=== PATIENT | female | born 1990 ===

== ENCOUNTER 2016-11-15 09:44 | Emergency (ER) | payer OTHER ==
[2016-11-15 09:50] VITALS: RESP 18; O2SAT 99
--- NOTE | 2016-11-15 10:25 | ED PDOC ---
HPI: Abdomen Time Seen by Provider: 11/15/16 10:08 Chief Complaint (Nursing): Abdominal Pain Chief Complaint (Provider): Abdominal Pain and Vomiting History Per: Patient History/Exam Limitations: no limitations Onset/Duration Of Symptoms: Days (1) Outside of [place] travel?: No Current Symptoms Are (Timing): Still Present Severity: Severe Pain Scale Rating Of: 10 Location Of Pain/Discomfort: Epigastric Quality Of Discomfort: Sharp Associated Symptoms: Nausea (since yesterday), Vomiting (early this AM, watery x2), Loss Of Appetite. denies: Fever, Chills, Diarrhea, Urinary Symptoms Exacerbating Factors: Food Last Bowel Movement: Yesterday Additional Complaint(s): 26 yo F w PMHx of treated ?stomach infection presents to ER for abdominal pain and vomiting x2 since this morning. Patient woke up w abdominal pain that she described as 10/10, sharp quality, and located in epigastric region. She vomited water shortly after waking up. Her last meal was yesterday morning as she became nauseous following breakfast. No regular medications, but she did try taking Nexium and Tylenol to help with her pain. She states having a stomach infection of unknown type 1.5 years ago that had been treated to it's resolution before emigrating to the [place]. LMP was 10/22, last sexual encounter was 2 days prior to this visit, and she does use protection. She denies any fevers/ chills, diarrhea, constipation, chest pain, palpitations, SOB, dyspnea, cough, hematuria, dysuria, vaginal discharge, or myalgias. Abnormal Vaginal Bleeding: No Last Menstral Period: 10/22 : 1 Para: 1 Past Medical History Reviewed: Historical Data, Nursing Documentation, Vital Signs Vital Signs: Last Vital Signs Temp 99.3 F 11/15/16 09:49 Pulse 76 11/15/16 09:49 Resp 18 11/15/16 09:49 BP 118/70 11/15/16 09:49 Pulse Ox 99 11/15/16 12:35 - Family History Family History: States: No Known Family Hx - Home Medications Home Medications: Ambulatory Orders Medication Instructions Recorded Famotidine [Pepcid] 20 mg PO BID PRN #10 tab 11/15/16 - Allergies Allergies/Adverse Reactions: Allergies Allergy/AdvReac Type Severity Reaction Status Date / Time No Known Allergies Allergy Verified 11/15/16 10:16 Review of Systems ROS Statement: Except As Marked, All Systems Reviewed And Found Negative (see HPI) Physical Exam - Reviewed Nursing Documentation Reviewed: Yes Vital Signs Reviewed: Yes - Physical Exam Appears: Positive for: Non-toxic, No Acute Distress Head Exam: Positive for: ATRAUMATIC, NORMAL INSPECTION, NORMOCEPHALIC Skin: Positive for: Normal Color, Warm, Dry Eye Exam: Positive for: Normal appearance, EOMI, PERRL Neck: Positive for: Normal, Painless ROM Cardiovascular/Chest: Positive for: Regular Rate, Rhythm. Negative for: Edema Respiratory: Positive for: Normal Breath Sounds. Negative for: Rhonchi, Wheezing Gastrointestinal/Abdominal: Positive for: Soft (lower quadrants only), Tenderness (TTP: LUQ, RUQ, Epigastric ), Guarding (voluntary LUQ, RUQ, Epigastric). Negative for: Distended Extremity: Positive for: Normal ROM. Negative for: Pedal Edema, Calf Tenderness Neurologic/Psych: Positive for: Alert, medical record librarian II-XII, Oriented - Laboratory Results Result Diagrams: 11/15/16 10:39 11/15/16 10:39 - ECG O2 Sat by Pulse Oximetry: 99 - Progress ED Course And Treament: 26 yo F w PMHx of treated ?stomach infection presents to ER for abdominal pain and vomiting x2 since this morning -CBC -CMP -Lipase -U/S: Abd GB Zofran and Pepcid added when Upreg resulted negative Update 1200: -Pain significantly improved -U/S resulted negative -Physical exam illicited much less tenderness Update 1300: -Pain and presentation continues to improve -To be discharged home w Pepcid and clinic instructions -ED precautions given Disposition - Clinical Impression Clinical Impression: Gastritis - Patient ED Disposition Is Patient to be Admitted: No - Disposition Referrals: [facility] [Outside] [facility] [Outside] Disposition: Routine/Home Disposition Time: 13:15 Condition: STABLE Additional Instructions: follow up with your primary doctor in 1-2 days - clinic referral return to the ED with any worsening or concerning symptoms. Prescriptions: Famotidine [Pepcid] 20 mg PO BID PRN #10 tab PRN Reason: Heartburn Instructions: Gastritis (ED) Print Language: EGYPTIAN
[2016-11-15 10:45] LABS: BASO % 0.4 % (0.0-2.0); EOS % 0.2 % (0.0-4.0); HEMATOCRIT 43.1 % (34.0-47.0); LYMPH # 1.7 K/uL (1.0-4.3); LYMPH % 16.2 % (20.0-40.0); MEAN CORPUSCULAR HEMOGLOBIN 28.5 pg (27.0-31.0); MEAN CORPUSCULAR HGB CONC 33.1 g/dL (33.0-37.0); MEAN PLATELET VOLUME 8.4 fl (7.2-11.7); MONO # 0.6 K/uL (0.0-0.8); MONO % 6.1 % (0.0-10.0); NEUT # 7.9 K/uL (1.8-7.0); NEUT % 77.1 % (50.0-75.0); NRBC % 0.1 % (0.0-0.0); RED CELL DISTRIBUTION WIDTH 13.1 % (11.5-14.5); WHITE BLOOD COUNT 10.2 K/uL (4.8-10.8)
[2016-11-15 10:56] LABS: ALB/GLOB RATIO 1.2 (1.0-2.1); ALKALINE PHOSPHATASE 39 U/L (38-126); ALT/SGPT 27 U/L (9-52); AST/SGOT 37 U/L (14-36); BILIRUBIN,TOTAL 0.9 mg/dl (0.2-1.3); BLOOD UREA NITROGEN 10 mg/dl (7-17); CALCIUM 9.2 mg/dL (8.4-10.2); CARBON DIOXIDE 21 mmol/L (22-30); CHLORIDE 107 mmol/L (98-107); GFR AFRICAN-AMERICAN > 60; GLUCOSE,RANDOM 81 mg/dL (65-105); LIPASE 135 U/L (23-300); SODIUM 139 mmol/l (132-148); TOTAL PROTEIN 8.2 G/DL (6.3-8.2)
[2016-11-15 10:57] LABS: POTASSIUM 5.3 MMOL/L (3.6-5.0)
--- NOTE | 2016-11-15 11:23 | US ---
HISTORY: intense abd pain COMPARISON: None available. TECHNIQUE: Sonographic evaluation of the right upper quadrant of the abdomen. FINDINGS: LIVER: Measures 14.0 cm in length and appears within normal limits of shape, size, and echotexture. No focal hepatic mass identified. No intrahepatic bile duct dilatation. GALLBLADDER: No gallstones. No gallbladder wall thickening or pericholecystic edema. Negative sonographic Mallory's sign as assessed by the electrical engineering professor. COMMON BILE DUCT: Measures 3 mm. PANCREAS: Not well-visualized. RIGHT KIDNEY: Measures 9.4 x 3.5 x 4.7 cm. No obstructing calculus or hydronephrosis identified. AORTA: Limited visualization appears grossly unremarkable. IVC: Limited visualization appears grossly unremarkable. OTHER FINDINGS: None . IMPRESSION: No acute findings. See above.
[2016-11-15 13:30] VITALS: BP 115/68; PULSE 62; TEMP 98
== END 2016-11-15 13:29 | disposition home or self-care (01) ==
LOC: H.ER 09:44
DX: K29.70 Gastritis, unspecified, without bleeding (principal)

== ENCOUNTER 2018-10-07 15:14 | Emergency (ER) | payer OTHER ==
[2018-10-07 15:25] VITALS: BP 114/74; PULSE 79; RESP 16; TEMP 98.4; O2SAT 100
[2018-10-07] MEDS ORDERED: Sodium Chloride 0.9% 1,000 ML IV STA (16:41)
--- NOTE | 2018-10-07 17:20 | ED PDOC ---
HPI: Headache Time Seen by Provider: 10/07/18 15:57 Chief Complaint (Nursing): Headache Chief Complaint (Provider): headache History Per: Patient History/Exam Limitations: no limitations Onset/Duration Of Symptoms: Days (4x) Current Symptoms Are (Timing): Still Present Severity: Moderate Associated Symptoms: Photophobia Additional Complaint(s): 28 year old female with a past medical history of intermittent headaches ("for a long time") presents to the ED for an evaluation of a whole head bilateral headache ongoing for 3x days. Patient reports having associated photophobia and throat pain for 3x days. Patient reports taking ibuprofen up to 3x times per day with no relief. Patient also reports taking amoxicillin which she bought from a corner store with no improvement of symptoms. Patient denies seeing a doctor about her headaches, and usually taking ibuprofen for the pain. Patient denies having fevers, blurry vision, nausea, vomiting, weakness, or numbness. PMD: None provided. Past Medical History Reviewed: Historical Data, Nursing Documentation, Vital Signs Vital Signs: Last Vital Signs Temp 98.4 F 10/07/18 15:21 Pulse 79 10/07/18 15:21 Resp 16 10/07/18 15:21 BP 114/74 10/07/18 15:21 Pulse Ox 100 10/07/18 15:21 ONEIAD Report Viewed: Yes Primary Care Provider: FAMILY PROVIDER,NO - Medical History PMH: No Chronic Diseases - Family History Family History: States: No Known Family Hx - Social History Current smoker - smoking cessation education provided: No Alcohol: None Drugs: Denies - Immunization History Hx Tetanus Toxoid Vaccination: No Hx Influenza Vaccination: No Hx Pneumococcal Vaccination: No - Home Medications Home Medications: Ambulatory Orders Medication Instructions Recorded Famotidine [Pepcid] 20 mg PO BID PRN #10 tab 11/15/16 Cephalexin [cephalexin] 500 mg PO BID #20 cap 10/07/18 - Allergies Allergies/Adverse Reactions: Allergies Allergy/AdvReac Type Severity Reaction Status Date / Time No Known Allergies Allergy Verified 10/07/18 15:21 Review of Systems ROS Statement: Except As Marked, All Systems Reviewed And Found Negative Constitutional: Negative for: Fever ENT: Positive for: Throat Pain Gastrointestinal: Negative for: Nausea, Vomiting Neurological: Positive for: Headache, Other (photophobia. (-) blurry vision). Negative for: Weakness, Numbness Physical Exam - Reviewed Nursing Documentation Reviewed: Yes Vital Signs Reviewed: Yes - Physical Exam Appears: Positive for: Well, Non-toxic, No Acute Distress Head Exam: Positive for: ATRAUMATIC, NORMOCEPHALIC Skin: Positive for: Normal Color, Warm, Dry Eye Exam: Positive for: Normal appearance, EOMI, PERRL ENT: Positive for: Tonsillar Exudate (mild), Tonsillar Swelling (mild) Cardiovascular/Chest: Positive for: Regular Rate, Rhythm Respiratory: Positive for: Normal Breath Sounds Neurological/Psych: Positive for: Awake, Alert, Normal Tone, Oriented (3x), Gait (steady), master welder II-XII (intact). Negative for: Lethargic, Motor/Sensory Defi cits, Facial Droop - Laboratory Results Result Diagrams: 10/07/18 17:22 10/07/18 17:22 - ECG O2 Sat by Pulse Oximetry: 100 (RA) Pulse Ox Interpretation: Normal Medical Decision Making Medical Decision Makin:57 Initial impression: 28 year old female with a headache Initial plan: * CMP * CBC with differential * upreg * urinalysis * IV NS 1,000 ml IV 500 mls/hr * reglan 10 mg IVP * tylenol 650 mg tab PO * reevaluation Upreg: negative 18:08 Labs reviewed, unremarkable except for many bacteria found in urine. (-) leukocytes, (-) nitrates. Sent urine culture. Upon provider reevaluation patient is feeling better, reports an improvement in her headache, is medically stable, and requires no further treatment in the ED at this time. Patient will be discharged home with an Rx for keflex. Counseling was provided and all questions were answered regarding diagnosis. There is agreement to discharge plan. Return if symptoms persist or worsen. ScribeAttestation: Documented Radha Vora, acting as a scribe for Qiana Harvey HYDRAULIC PRESS SERVICER. Provider ScribeAttestation: All medical record entries made by the Scribe were at my direction and personally dictated by me. I have reviewed the chart and agree that the record accurately reflects my personal performance of the history, physical exam, medical decision making, and the department course for this patient. I have also personally directed, reviewed, and agree with the discharge instructions and disposition. Disposition - Clinical Impression Clinical Impression: Headache, Pharyngitis, UTI (urinary tract infection) - Patient ED Disposition Is Patient to be Admitted: No Counseled Patient/Family Regarding: Diagnosis - Disposition Referrals: [facility] [Outside] Disposition: Routine/Home Disposition Time: 18:08 Condition: IMPROVED Prescriptions: Cephalexin [cephalexin] 500 mg PO BID #20 cap Instructions: Tension Headache, Sore Throat, Adult (DC) Forms: [facility] (Belarusian) Print Language: LIBERIAN - POA Present On Arrival: None
[2018-10-07 17:44] LABS: BASO # 0.1 K/uL (0.0-0.2); BASO % 0.7 % (0.0-2.0); EOS # 0.1 K/uL (0.0-0.7); EOS % 1.1 % (0.0-4.0); HEMOGLOBIN 13.9 g/dL (12.0-16.0); LYMPH # 2.5 K/uL (1.0-4.3); LYMPH % 33.7 % (20.0-40.0); MEAN CELL VOLUME 88.2 fl (81.0-99.0); MEAN CORPUSCULAR HEMOGLOBIN 28.6 pg (27.0-31.0); MEAN CORPUSCULAR HGB CONC 32.5 g/dL (33.0-37.0); MEAN PLATELET VOLUME 8.4 fl (7.2-11.7); MONO # 0.7 K/uL (0.0-0.8); NEUT # 4.1 K/uL (1.8-7.0); NEUT % 55.5 % (50.0-75.0); RBC 4.84 Mil/uL (3.80-5.20); RED CELL DISTRIBUTION WIDTH 12.6 % (11.5-14.5); WHITE BLOOD COUNT 7.4 K/uL (4.8-10.8)
[2018-10-07 18:00] LABS: SQUAMOUS EPITHIAL 11 /hpf (0-5); URINE BACTERIA MANY (<OCC); URINE BILIRUBIN NEGATIVE (NEGATIVE); URINE BLOOD NEGATIVE (NEGATIVE); URINE CLARITY CLOUDY (Clear); URINE COLOR YELLOW (YELLOW); URINE GLUCOSE (UA) NEG (NEGATIVE); URINE LEUKOCYTE ESTERASE NEG Leu/uL (Negative); URINE PROTEIN NEGATIVE (NEGATIVE); URINE UROBILINOGEN 0.2-1.0 mg/dL (0.2-1.0)
[2018-10-07 18:05] LABS: ALB/GLOB RATIO 1.3 (1.0-2.1); ALBUMIN 4.4 g/dL (3.5-5.0); ALT/SGPT 22 U/L (9-52); AST/SGOT 30 U/L (14-36); BLOOD UREA NITROGEN 12 mg/dl (7-17); CALCIUM 9.3 mg/dL (8.4-10.2); GFR NON-AFRICAN AMERICAN > 60
== END 2018-10-07 18:27 | disposition home or self-care (01) ==
LOC: H.ER 15:14
DX: R51 Headache (principal); J02.9 Acute pharyngitis, unspecified; N39.0 Urinary tract infection, site not specified
CPT/HCPCS: 80053; 81003; 81025; 85025; 87086; 96374; 99285; J2765; J7030

== ENCOUNTER 2018-10-08 18:50 | Emergency (ER) | payer OTHER ==
[2018-10-08 19:24] VITALS: RESP 16; O2SAT 100
--- NOTE | 2018-10-08 20:28 | ED PDOC ---
HPI: Headache Time Seen by Provider: 10/08/18 20:08 Chief Complaint (Nursing): Headache Chief Complaint (Provider): headache History Per: Patient, Paediatric Thoracic Physician (val #[id number]) History/Exam Limitations: no limitations Onset/Duration Of Symptoms: Days (3) Current Symptoms Are (Timing): Still Present Quality: "Pain" Associated Symptoms: Photophobia Additional History Per: Patient Additional Complaint(s): 28 y/o female presents for evaluation of frontal headache x 3 days. Patient states she was here yesterday for same and was given medications which helped "a little" and states pain returned today. Associated photophobia, phonophobia. Patient reports similar headaches since she was young, has never seen a doctor for it. Patient states she has been taking Ibuprofen with little improvement. Denies fever, nausea/vomiting, dizziness, extremity numbness/weakness, neck pain, chest pain, shortness of breath, palpitations.l Past Medical History Reviewed: Historical Data, Nursing Documentation, Vital Signs Vital Signs: Last Vital Signs Temp 98.1 F 10/08/18 19:21 Pulse 83 10/08/18 19:21 Resp 16 10/08/18 19:21 BP 109/71 10/08/18 19:21 Pulse Ox 100 10/08/18 19:21 Primary Care Provider: Procedure,Nonphys - Medical History PMH: No Chronic Diseases - Surgical History Surgical History: - Family History Family History: States: No Known Family Hx - Living Arrangements Living Arrangements: With Family - Immunization History Hx Tetanus Toxoid Vaccination: No Hx Influenza Vaccination: No Hx Pneumococcal Vaccination: No - Home Medications Home Medications: Ambulatory Orders Medication Instructions Recorded Famotidine [Pepcid] 20 mg PO BID PRN #10 tab 11/15/16 Cephalexin [cephalexin] 500 mg PO BID #20 cap 10/07/18 Acetaminophen/Butalbital/Caf 1 tab PO Q6 PRN #12 tab 10/08/18 [Fioricet] - Allergies Allergies/Adverse Reactions: Allergies Allergy/AdvReac Type Severity Reaction Status Date / Time No Known Allergies Allergy Verified 10/07/18 15:21 Review of Systems ROS Statement: Except As Marked, All Systems Reviewed And Found Negative Neurological: Positive for: Headache Physical Exam - Reviewed Nursing Documentation Reviewed: Yes Vital Signs Reviewed: Yes - Physical Exam Appears: Positive for: Well, Non-toxic, No Acute Distress Head Exam: Positive for: ATRAUMATIC, NORMAL INSPECTION, NORMOCEPHALIC Skin: Positive for: Normal Color Eye Exam: Positive for: Normal appearance, EOMI, PERRL ENT: Positive for: Normal ENT Inspection Neck: Positive for: Normal, Painless ROM, Supple Cardiovascular/Chest: Positive for: Regular Rate, Rhythm Respiratory: Positive for: Normal Breath Sounds Gastrointestinal/Abdominal: Positive for: Normal Exam Back: Positive for: Normal Inspection Extremity: Positive for: Normal ROM Neurological/Psych: Positive for: Awake, Alert, Oriented (x3). Negative for: Motor/Sensory Deficits - ECG O2 Sat by Pulse Oximetry: 100 - Progress ED Course And Treament: labs reviewed from yesterday, unremarkable -upreg -Toradol IM -Reglan PO -CT head EXAM: CT Head Without IV contrast. CLINICAL HISTORY: Headache TECHNIQUE: Axial computed tomography images of the head/brain without intravenous contrast. COMPARISON: None provided. FINDINGS: BRAIN: No acute intraparenchymal hemorrhage. No mass lesion. No CT evidence for acute territorial infarct. No midline shift or extra-axial collections. VENTRICLES: No hydrocephalus. ORBITS: The orbits are unremarkable. SINUSES AND MASTOIDS: The paranasal sinuses and mastoid air cells are clear. BONES: No fracture. SOFT TISSUES: Unremarkable. IMPRESSION: No acute intracranial abnormality On re-eval, patient reports improvement of symptoms. Neuro exam remains benign Patient educated on findings, discharged with rx Fioricet Advised follow up PMD within 2-3 days Return precautions given Disposition - Clinical Impression Clinical Impression: Headache - Patient ED Disposition Is Patient to be Admitted: No Counseled Patient/Family Regarding: Studies Performed, Diagnosis, Need For Followup, Rx Given - Disposition Referrals: [facility] [Outside] Disposition: Routine/Home Disposition Time: 22:14 Condition: IMPROVED Prescriptions: Acetaminophen/Butalbital/Caf [Fioricet] 1 tab PO Q6 PRN #12 tab PRN Reason: Headache Instructions: Headache, Adult Print Language: UPPER SORBIAN
[2018-10-08 22:23] VITALS: BP 116/74; PULSE 80; TEMP 98.4
--- NOTE | 2018-10-09 10:01 | CT ---
Date of service: 10/08/2018 PROCEDURE: CT HEAD WITHOUT CONTRAST. HISTORY: headache COMPARISON: None available. TECHNIQUE: Axial computed tomography images were obtained through the head/brain without intravenous contrast. Radiation dose: Total exam DLP = 765.41 mGy-cm. This CT exam was performed using one or more of the following dose reduction techniques: Automated exposure control, adjustment of the mA and/or kV according to patient size, and/or use of iterative reconstruction technique. FINDINGS: HEMORRHAGE: No intracranial hemorrhage. BRAIN: No mass effect or edema. No atrophy or chronic microvascular ischemic changes. VENTRICLES: Unremarkable. No hydrocephalus. CALVARIUM: Unremarkable. PARANASAL SINUSES: Unremarkable as visualized. No significant inflammatory changes. MASTOID AIR CELLS: Unremarkable as visualized. No inflammatory changes. OTHER FINDINGS: None. IMPRESSION: Normal CT of the Head. Concordant results (preliminary interpretation) provided by [facility].
== END 2018-10-08 22:18 | disposition home or self-care (01) ==
LOC: H.ER 18:50
DX: R51 Headache (principal)
CPT/HCPCS: 70450; 81025; 96372; 99285; J1885